=== PATIENT | female | born 1970 | race Caucasian/White ===

== ENCOUNTER 2024-03-27 19:19 | Emergency (ER) | payer SELFPAY ==
[2024-03-27 20:00] LABS: HEMATOCRIT 35.9 % (37.0-47.0); HEMOGLOBIN 11.4 g/dL (12.5-16.0); MEAN CELL VOLUME 85 fl (78-100); MEAN CORPUSCULAR HEMOGLOBIN 27 pg (27-31); MEAN CORPUSCULAR HGB CONC 32 g/dL (33-37); MEAN PLATELET VOLUME 9.8 fl (7.4-10.4); PLATELET COUNT 329 K/mm3 (130-400); RED BLOOD COUNT 4.22 M/mm3 (4.10-5.30); RED CELL DISTRIBUTION WIDTH 13.7 % (11.5-14.5); WHITE BLOOD COUNT 16.1 K/mm3 (4.8-10.8)
[2024-03-27 20:06] LABS: ALBUMIN 4.6 g/dL (3.5-5.0)
[2024-03-27 20:07] LABS: CALCIUM 9.6 mg/dL (8.3-10.5)
[2024-03-27 20:09] LABS: TOTAL PROTEIN 7.4 g/dL (6.4-8.3)
[2024-03-27 20:10] LABS: TOTAL BILIRUBIN 0.8 mg/dL (0.2-1.2)
[2024-03-27 20:14] LABS: BAND 2 % (0-10); HYPOCHROMIA 2+; LYMPHOCYTE 2 % (20-51); MONOCYTE 3 % (3-10); NEUTROPHILS 93 % (42-75)
[2024-03-27] MEDS ORDERED: NS 1,000 ML IV SCH (20:15)
[2024-03-27] MEDS ORDERED: Iohexol 300 - 100 ML VIAL IV ONE (20:36)
[2024-03-27] MEDS ORDERED: Ketorolac 30 MG/ML VIAL IV ONE (21:45)
[2024-03-27] MEDS ORDERED: ONDANSETRON HYDR4 MG PO (23:18)
[2024-03-27 23:37] VITALS: BP 118/64
== END 2024-03-27 23:37 | disposition home or self-care (01) ==
LOC: ED 19:19
PROVIDERS: Family Medicine
DX: R10.9 Unspecified abdominal pain (principal)
CPT/HCPCS: J1885; J7030; Q9967

== ENCOUNTER → 2024-04-10 | Outpatient (CLI) | payer SELFPAY ==
[~2024-04-10] MED LIST: ONDANSETRON HYDR4 MG PO
== END ==
LOC: RAD 10:51
DX: N83.201 Unspecified ovarian cyst, right side (principal); N83.202 Unspecified ovarian cyst, left side